=== PATIENT | male | born 1955 | race Caucasian/White ===

== ENCOUNTER → 2016-09-02 | Outpatient (CLI) | payer MEDICARE, OTHER ==
[~2016-09-02] MED LIST: ACETAMINOPHEN650 M3 PO; ALBUTEROL17 GM INH; ALDACTONE PO; AMLODIPINE BESYL5 MG PO; AMOXICILLIN PO; ASPIRIN PO; ASPIRIN81 M1 PO; AZOR; BYSTOLIC PO; CARVEDILOL6.25 MG PO; COLACE PO; COUMADIN4 MG PO; EFFER-K 20 MEQ20 MEQ PO; IMDUR-ER30 MG PO; ISOSORBIDE DINI30 MG PO; JANTOVEN2 MG PO; K-DUR20 ME1 DOB; LASIX PO; LASIX20 MG; LASIX20 MG PO; LIPITOR PO; LIPITOR40 MG PO; LISINOPRIL PO; LISINOPRIL20 MG PO; MELOXICAM15 MG PO; NIASPAN PO; OCEAN45 ML; OMEPRAZOLE20 M2 PO; PANTOPRAZOLE SO40 MG PO; PLAVIX PO; PROTONIX PO; ROBITUSSIN-DM120 ML PO; ST. JOSEPH ASPI81 M2 PO; TALADINE150 MG PO; ZITHROMAX PO; [UNRECOGNIZED DRUG - OTHER] TP
[2016-09-02 15:58] LABS: HEMATOCRIT 43.3 % (38.0-50.0); HEMOGLOBIN 14.2 gm/dL (13.0-16.0); MEAN CELL VOLUME 85.4 FL (83-96); MEAN CORPUSCULAR HEMOGLOBIN 28.1 PG (28-34); MEAN CORPUSCULAR HGB CONC 32.9 g/dL (30-36); MEAN PLATELET VOLUME 7.1 FL (6.5-11.5); RED BLOOD COUNT 5.07 X10e (3.90-5.60); WHITE BLOOD COUNT 7.3 X10e3 (4.0-10.5)
[2016-09-02 16:26] LABS: ALBUMIN SERUM 4.5 g/dL (3.5-5.0); BILIRUBIN,TOTAL 0.7 mg/dL (0.2-2.0); CALCIUM SERUM 9.3 mg/dL (8.4-10.2); CREATININE SERUM 1.9 mg/dL (0.6-1.4); GLOM FILT RATE Estimated 36.7 mL/min (>60); PHOSPHOROUS 2.6 mg/dL (2.5-4.6); POTASSIUM 4.2 mmol/L (3.5-5.1); PROTEIN TOTAL SERUM 7.7 g/dL (6.0-8.3); URIC ACID 8.7 mg/dL (2.6-7.2)
[2016-09-04 18:40] LABS: CALCIUM (PTHINTACT) 9.6 mg/dL (8.6-10.3)
== END | disposition home or self-care (01) ==
LOC: CLAB 15:25
PROVIDERS: Internal Medicine Nephrology
DX: N18.3 Chronic kidney disease, stage 3 (moderate) (principal)
CPT/HCPCS: 36415; 80053; 82310; 83970; 84100; 84550; 85027

== ENCOUNTER → 2016-11-14 | Outpatient (CLI) | payer MEDICARE, OTHER ==
[2016-11-14 18:08] LABS: ALBUMIN SERUM 4.7 g/dL (3.5-5.0); BILIRUBIN,TOTAL 1.3 mg/dL (0.2-2.0); CREATININE SERUM 1.8 mg/dL (0.6-1.4); GLOM FILT RATE Estimated 39.2 mL/min (>60); PROTEIN TOTAL SERUM 7.8 g/dL (6.0-8.3)
== END | disposition home or self-care (01) ==
LOC: CLAB 17:08
PROVIDERS: Internal Medicine Nephrology
DX: N18.3 Chronic kidney disease, stage 3 (moderate) (principal)
CPT/HCPCS: 36415; 80053